=== PATIENT | female | born 2000 | race Caucasian/White ===

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

== ENCOUNTER 2021-08-24 21:45 | Emergency (ER) | payer OTHER ==
[~2021-08-24] VITALS: Ht 167.6 cm; Wt 86.2 kg
[~2021-08-24 21:45] MED LIST changes: +AMOXICILLIN500 M2 PO
[2021-08-24] MEDS ORDERED: CLEOCIN HCL300 MG PO (22:05)
== END 2021-08-24 22:08 | disposition home or self-care (01) ==
LOC: ED 21:45
DX: K08.89 Other specified disorders of teeth and supporting structures (principal)

== ENCOUNTER 2022-07-03 21:01 | Emergency (ER) | payer BC ==
[~2022-07-03] VITALS: Ht 167.6 cm; Wt 72.6 kg
[~2022-07-03 21:01] MED LIST changes: +CLEOCIN HCL300 MG PO
[2022-07-03] MEDS ORDERED: PROZAC20 MG PO (22:28)
[2022-07-03] MEDS ORDERED: AMOX-CLAV 875-1 EACH PO (22:48)
[2022-07-03] MEDS ORDERED: KETOROLAC10 MG PO (22:48)
== END 2022-07-04 00:16 | disposition home or self-care (01) ==
LOC: ED 21:01
DX: K08.89 Other specified disorders of teeth and supporting structures (principal); Z98.890 Other specified postprocedural states; Z87.891 Personal history of nicotine dependence

== ENCOUNTER 2024-03-11 14:50 | Emergency (ER) | payer SELFPAY ==
[~2024-03-11] VITALS: Ht 162.5 cm; Wt 81.6 kg
[~2024-03-11 14:50] MED LIST changes: +AMOX-CLAV 875-1 EACH PO; +KETOROLAC10 MG PO; +PROZAC20 MG PO
[2024-03-11 15:35] LABS: BILIRUBIN Negative (Negative); BLOOD Negative (Negative); CLARITY Clear (Clear); COLOR Yellow (Yellow); GLUCOSE Negative (Negative); KETONE Trace (Negative); LEUKO ESTERASE Negative (Negative); NITRITE Negative (Negative); PH 6.5 (4.5-8.0); SPECIFIC GRAVITY 1.025 (1.001-1.030)
[2024-03-11 15:43] LABS: BACTERIA 1+; EPITHELIAL CELLS 21-30
== END 2024-03-11 16:06 | disposition home or self-care (01) ==
LOC: ED 14:50
PROVIDERS: Physician Assistant Medical
DX: Z32.01 Encounter for pregnancy test, result positive (principal); Z30.46 Encounter for surveillance of implantable subdermal contraceptive